=== PATIENT | female | born 1980 | race African-American/Black ===

== ENCOUNTER 2017-08-18 11:55 | Emergency (ER) | payer OTHER ==
[2017-08-18 12:01] VITALS: BMI 36.2
--- NOTE | 2017-08-18 12:41 | PDOC ---
Attending Attestation - HPI HPI: 08/18/17 13:48 The patient is a 37 year old female with no significant past medical history who presents to the Emergency Department complaining of back pain for 3 days. The patient states that her pain began after trying to get out of bed. She denies nausea, vomiting, diarrhea, abdominal pain, numbness, and tingling sensation. She endorses a heavy menses and foud smelling urine. - Physicial Exam PE: 08/18/17 13:48 GENERAL: Awake, alert, and fully oriented, in no acute distress HEAD: No signs of trauma EYES: PERRLA, EOMI, sclera anicteric, conjunctiva clear ENT: Auricles normal inspection, hearing grossly normal, nares patent, oropharynx clear without exudates. Moist mucosa NECK: (+) Normal ROM, supple, no lymphadenopathy, JVD, or masses. Mid paraspinal tenderness. Tenderness at bilateral si joints. LUNGS: Diminished breath sounds bilaterally. No wheezes, and no crackles HEART: Regular rate and rhythm, normal S1 and S2, no murmurs, rubs or gallops ABDOMEN: Soft, nontender, normoactive bowel sounds. No guarding, no rebound. No masses EXTREMITIES: Normal range of motion, no edema. No clubbing or cyanosis. No cords, erythema, or tenderness NEUROLOGICAL: Cranial nerves II through XII grossly intact. Normal speech, normal gait SKIN: Warm, Dry, normal turgor, no rashes or lesions noted. - Medical Decision Making 08/18/17 13:48 Documentation prepared by Hardik Park, acting as medical referral coordinator for Syl Mcallister DO. <Hardik Park - Last Filed: 08/18/17 13:48> - Resident Resident Name: Mecca Valdez - ED Attending Attestation I have performed the following: I have examined & evaluated the patient, The case was reviewed & discussed with the resident, I agree w/resident's findings & plan, Exceptions are as noted - Medical Decision Making 08/18/17 12:40 I, Dr. Syl Mcallister DO, attest that this document has been prepared under my direction and personally reviewed by me in its entirety. I further attest, that it accurately reflects all work, treatment, procedures and medical decision -making performed by me. 08/18/17 13:49 37yo female with 3 days of LBP - no radiation -no signs/symptoms of caude equina no paresthesias or weakness pain with movement no trauma dub iud in place will obtain ct lumbar spine, labs, ucg, pain control paraspinal and midline ttp will monitor and reassess 08/18/17 16:28 discussed lab and imaging results with the patient. pt able to ambulate to the bathroom stable for d/c to home pt states feeling much better will give flexeril and motrin for pain at home. States she will follow up with Dr. Garza and PMD. Will recommend she also follows up with Dr. Fidencio Banks for back pain. <Syl Mcallister - Last Filed: 08/18/17 16:37> Discharge Disposition - Discharge Dispostion Last Admission D/C Date: 05/29/16 Admit: No <Syl Mcallister - Last Filed: 08/18/17 16:37> - Diagnosis Low back pain - Discharge Dispostion Disposition: HOME Condition at time of disposition: Stable - Prescriptions Prescriptions: Cyclobenzaprine HCl [Flexeril 10 mg] 10 mg PO BID PRN #10 tablet PRN Reason: Muscle Spasms Ibuprofen [Motrin -] 600 mg PO TID PRN #15 tablet PRN Reason: Pain - Referrals Referrals: Paul Oneal [Primary Care Provider] - Leighton Garza MD [Staff Physician] - iFdencio Banks MD [Staff Physician] - - Patient Instructions Printed Discharge Instructions: DI for Low Back Pain Additional Instructions: Please take all meds as prescribed. Please make an appointment with your STOCK DRIVER- for further eval of your abnormal vaginal bleeding, PMD and the neurosurgeon for further eval of your back pain. Please return to the ED with any further concerns. - Post Discharge Activity
--- NOTE | 2017-08-18 12:45 | PDOC ---
History of Present Illness - General Chief Complaint: Vaginal Bleeding Stated Complaint: LOWER BACK PAIN, VAGINAL BLEEDING Time Seen by Provider: 08/18/17 12:07 History Source: Patient Exam Limitations: No Limitations - History of Present Illness Initial Comments: This is a 37 YOF with h/o chronic low back pain, anemia thought 2/2 uterine fibroids, and IUD use (placed about one year ago without known complication) who presents with atraumatic exacerbation of her lower back pain over the past 7 days with acute worsening in the past 3 days. She notes 10/10 sharp non- radiating pain to the midline low back worse with any movement/repositioning. It was bad enough three days ago that she slumped to the floor and her daughter had to help her up. She has been having difficulty walking d/t the pain. She has been taking Tylenol and Motrin without relief. Other than being much more sever than her prior back pain exacerbations, this pain is no different. She additionally notes heavy menstrual periods with her last one on 07/28-08/11. She has had strong smell to her urine and occasional visual floaters, but denies any fever, chills, nausea, vomiting, diarrhea, constipation, chest pain, SOB, abdominal pain, painful urination, black/bloody stool, numbness, tingling, weakness, balance issues, vision changes (aside from the occasional floaters), incontinence, or other symptoms. She had a normal pelvic exam on 08/05/17 and is scheduled for a pelvic US tomorrow. Past History - Past Medical History Allergies/Adverse Reactions: Allergies Allergy/AdvReac Type Severity Reaction Status Date / Time No Known Allergies Allergy Verified 08/18/17 11:57 Home Medications: Ambulatory Orders Cyclobenzaprine HCl [Flexeril 10 mg] 10 mg PO BID PRN #10 tablet 08/18/17 Ibuprofen [Motrin -] 600 mg PO TID PRN #15 tablet 08/18/17 Sulfamethoxazole/Trimethoprim [Bactrim Ds -] 1 tab PO BID #6 tablet 08/18/17 Anemia: Yes Asthma: No Cancer: No Cardiac Disorders: No COPD: No Diabetes: No HTN: No Seizures: No Thyroid Disease: No Other medical history: fibroids - Reproductive History (#): 4 Para: 4 Spontaneous : 0 - Immunization History Immunization Up to Date: Yes - Suicide/Smoking/Psychosocial Hx Smoking Status: No Smoking History: Never smoked Have you smoked in the past 12 months: No Number of Cigarettes Smoked Daily: 0 Hx Alcohol Use: No Drug/Substance Use Hx: No Hx Substance Use Treatment: No Review of Systems - Review of Systems Able to Perform ROS?: Yes Constitutional: No: Chills, Fever, Unexplained wgt Loss HEENTM: Yes: Other (occasional floaters in visual field). No: Nose Congestion, Throat Pain Respiratory: No: Cough, Shortness of Breath Cardiac (ROS): No: Chest Pain, Palpitations ABD/GI: No: Constipated, Diarrhea, Nausea, Vomiting : Yes: Other (strong smell to urine). No: Burning, Dysuria Musculoskeletal: Yes: Back Pain. No: Neck Pain Integumentary: No: Bruising, Rash Neurological: No: Headache, Numbness, Tingling, Weakness, Dizziness Endocrine: No: Unexplained Weight Gain, Unexplained Weight Loss *Physical Exam - Vital Signs Last Vital Signs Temp Pulse Resp BP Pulse Ox 97.8 F 76 18 142/85 99 08/18/17 11:57 08/18/17 11:57 08/18/17 11:57 08/18/17 11:57 08/18/17 11:57 - Physical Exam General Appearance: Yes: Nourished, Appropriately Dressed, Mild Distress, Obese , Other (adult female sitting in wheelchair initially, appears uncomfortable, answers questions appropriately) HEENT: positive: EOMI, NAZARIO, Normal Voice, Hearing Grossly Normal. negative: Scleral Icterus (R), Scleral Icterus (L), Nasal Congestion Neck: positive: Trachea midline, Supple. negative: Tender, Rigid Respiratory/Chest: positive: Lungs Clear, Normal Breath Sounds. negative: Respiratory Distress, Crackles, Rhonchi, Stridor, Wheezing Cardiovascular: positive: Regular Rhythm, Regular Rate. negative: Murmur Female Pelvic Exam: positive: normal external exam, cervical os closed, normal adnexa, vaginal bleeding (scant). negative: CMT Gastrointestinal/Abdominal: positive: Normal Bowel Sounds, Soft. negative: Tender, Organomegaly, Pulsatile Mass, Guarding Musculoskeletal: positive: Normal Inspection, Vertebral Tenderness (diffuse lumbar/sacral). negative: CVA Tenderness, Decreased Range of Motion Extremity: positive: Normal Capillary Refill, Normal Inspection, Normal Range of Motion. negative: Tender, Cyanosis Integumentary: positive: Normal Color, Dry, Warm. 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 negative : EOM Palsy, Facial Droop, Numbness, Sensory Deficit, Confused, Disoriented ED Treatment Course - LABORATORY CBC & Chemistry Diagram: 08/18/17 13:20 08/18/17 13:20 Medical Decision Making - Medical Decision Making 37 YOF with exacerbated chronic back pain without other focal neuro signs. On exam VS wnl, she is uncomfortable, diffuse midline lumbar ttp, states unable to walk 2/2 pain DDX IBNLT muscle strain/sprain, disc herniation, compression fracture, pyelonephritis, ureteral stone, LL spinal epidural abscess, etc. Ordered is CBCD CMP Mg Lipase Coags T&S UA Cx EKG CT L-spine WOC Ofirmev Toradol Flexeril. 08/18/17 14:12 Labs unremarkable, still awaiting U-Preg. Nonspecific t-wave abnormalities on EKG, otherwise unremarkable, no old studies. 08/18/17 14:50 U-preg negative. CT shows mild disc bulge without nerve impingement, nothing acute. 08/18/17 16:54 Bimanual exam done, no abnormality. UA and Cx sent. 08/18/17 17:16 UA positive, Bactrim sent to pharmacy. Return precautions discussed. *DC/Admit/Observation/Transfer Diagnosis at time of Disposition: Vaginal bleeding Low back pain Qualifiers: Chronicity: acute Back pain laterality: midline Sciatica presence: without sciatica Qualified Code(s): M54.5 - Low back pain UTI (urinary tract infection) Qualifiers: Urinary tract infection type: site unspecified Hematuria presence: with hematuria Qualified Code(s): N39.0 - Urinary tract infection, site not specified - Discharge Dispostion Disposition: HOME Condition at time of disposition: Stable Admit: No - Prescriptions Prescriptions: Cyclobenzaprine HCl [Flexeril 10 mg] 10 mg PO BID PRN #10 tablet PRN Reason: Muscle Spasms Ibuprofen [Motrin -] 600 mg PO TID PRN #15 tablet PRN Reason: Pain Sulfamethoxazole/Trimethoprim [Bactrim Ds -] 1 tab PO BID #6 tablet - Referrals Referrals: Fidencio Banks MD [Staff Physician] - Paul Oneal [Primary Care Provider] - Leighton Garza MD [Staff Physician] - - Patient Instructions Printed Discharge Instructions: DI for Low Back Pain Additional Instructions: Please take all meds as prescribed. Please make an appointment with your BURR MACHINE OPERATOR- for further eval of your abnormal vaginal bleeding, PMD and the neurosurgeon for further eval of your back pain. Please return to the ED with any further concerns. - Post Discharge Activity
[2017-08-18] MEDS ORDERED: ACETAMINOPHEN 1000 MG/100 ML VIAL (NON FORMULARY) IVPB ONE (13:06)
[2017-08-18] MEDS ORDERED: KETOROLAC TROMETHAMINE 30 MG/1 ML VIAL IVPUSH ONE (13:06)
[2017-08-18] MEDS ORDERED: CYCLOBENZAPRINE HCL 10 MG TABLET (FP) PO ONE (13:07)
[2017-08-18 13:27] LABS: BASO % 0.7 % (0-2.0); EOS % 0.9 % (0-4.5); HEMATOCRIT 36.3 % (32.4-45.2); HEMOGLOBIN 11.4 GM/dL (10.7-15.3); LYMPH % 42.1 % (8-40); MCH 23.5 pg (25.7-33.7); MCHC 31.4 g/dl (32.0-36.0); MEAN CELL VOLUME 74.9 fl (80-96); MEAN PLT VOLUME 8.6 fl (7.5-11.1); MONO % 5.7 % (3.8-10.2); NEUT % 50.6 % (42.8-82.8); RBC 4.85 M/mm3 (3.60-5.2); RDW 16.8 % (11.6-15.6); WHITE BLOOD COUNT 5.5 K/mm3 (4.0-10.0)
[2017-08-18] MEDS ORDERED: ACETAMINOPHEN INJECTION 100 ML IVPB ONE (13:27)
[2017-08-18] MEDS ORDERED: CYCLOBENZAPRINE HCL 10 MG TABLET (FP) ONE (13:27)
[2017-08-18] MEDS ORDERED: KETOROLAC TROMETHAMINE 30 MG/1 ML VIAL ONE (13:27)
[2017-08-18 13:53] LABS: INR 1.06 (0.82-1.09)
[2017-08-18 13:56] LABS: ALBUMIN 3.7 g/dl (3.4-5.0); ANION GAP 9 (8-16); BILIRUBIN,TOTAL 0.4 mg/dL (0.2-1.0); BLOOD UREA NITROGEN 12 mg/dL (7-18); CALCIUM 8.4 mg/dL (8.5-10.1); CHLORIDE 103 mmol/L (98-107); CO2 27 mmol/L (21-32); CREATININE 0.9 mg/dL (0.55-1.02); GLUCOSE,RANDOM 76 mg/dL (74-106); LIPASE 107 U/L (73-393); SGPT/ALT 16 U/L (12-78); SODIUM 139 mmol/L (136-145); TOT PROT 7.6 g/dl (6.4-8.2)
[2017-08-18 13:57] LABS: ALK PHOS 91 U/L (45-117)
[2017-08-18 14:03] LABS: MAGNESIUM 2.3 mg/dL (1.8-2.4); POTASSIUM 4.2 mmol/L (3.5-5.1); SGOT/AST 24 U/L (15-37)
[2017-08-18 16:58] LABS: HCG,QUALITATIVE URINE NEGATIVE
[2017-08-18 17:02] LABS: URINE COLOR YELLOW
[2017-08-18 17:03] LABS: URINE APPEARANCE CLEAR; URINE BILIRUBIN NEGATIVE (NEGATIVE); URINE BLOOD 3+ (NEGATIVE); URINE GLUCOSE (UA) NEGATIVE (NEGATIVE); URINE KETONE NEGATIVE (NEGATIVE); URINE LEUK ESTERASE TRACE (NEGATIVE); URINE NITRITE POSITIVE (NEGATIVE); URINE PROTEIN NEGATIVE (NEGATIVE); URINE UROBILINOGEN NORMAL mg/dL (0.2-1.0)
[2017-08-18 17:04] LABS: URINE BACTERIA RARE /hpf (NONE SEEN); URINE MUCUS RARE
[2017-08-18 18:07] VITALS: BP 137/83; PULSE 73; TEMP 98.7
--- NOTE | 2017-08-19 12:51 | EKG ---
Test Reason : Blood Pressure : / mmHG Vent. Rate : 067 BPM Atrial Rate : 067 BPM P-R Int : 180 ms QRS Dur : 068 ms QT Int : 384 ms P-R-T Axes : 058 042 024 degrees QTc Int : 405 ms NORMAL SINUS RHYTHM POSSIBLE LEFT ATRIAL ENLARGEMENT NONSPECIFIC T WAVE ABNORMALITY ABNORMAL ECG NO PREVIOUS ECGS AVAILABLE Confirmed by DARA BENITEZ, NIKO ([id number]) on 08/19/2017 12:51:36 PM Referred By: Confirmed By:NIKO DIAMOND MD
== END 2017-08-18 18:10 | disposition home or self-care (01) ==
LOC: JER 11:55
PROC: 3E033NZ Introduction of Analgesics, Hypnotics, Sedatives into Peripheral Vein, Percutaneous Approach (ICD-10-PCS; principal; 2017-08-18)
PROC: 3E0333Z Introduction of Anti-inflammatory into Peripheral Vein, Percutaneous Approach (ICD-10-PCS; 2017-08-18)
DX: N39.0 Urinary tract infection, site not specified (principal); M51.26 Other intervertebral disc displacement, lumbar region; D25.9 Leiomyoma of uterus, unspecified
CPT/HCPCS: 36415; 72131-TC; 80053; 81003; 81015; 83690; 83735; 84703; 85025; 85610; 86850; 86870; 86900; 86901; 86902; 87086; 87186; 93005; 93010; 96374; 96375; 99283-25